=== PATIENT | female | born 1980 | race Caucasian/White ===

== ENCOUNTER 2016-11-18 16:38 | Emergency (ER) | payer MEDICAID ==
[~2016-11-18] VITALS: Ht 160 cm; Wt 94.5 kg
[~2016-11-18 16:38] MED LIST: CALC-516 PO; FERR240T9 PO; PREN-39 PO
[2016-11-18 16:41] VITALS: Ht 160 cm; Wt 94.5 kg
[2016-11-18] MEDS ORDERED: SOD CHLORIDE 0.9% 1,000 ML IV STA (17:09)
[2016-11-18] MEDS ORDERED: ONDANSETRON 4 MG INJ IV STA (17:09)
[2016-11-18] MEDS ORDERED: morphine 4 MG/ML VIAL IV STA (17:09)
--- NOTE | 2016-11-18 17:35 | ERD ---
ER Documentation Chief Complaint Date/Time DATE: 11/18/16 TIME: 17:32 Chief Complaint LT UPPER ABD PAIN WITH NAUSEA X 3 DAYS HPI This is a 36-year-old female with a history of cholelithiasis presenting to the emergency department complaining of epigastric and bilateral upper quadrant abdominal pain for the past 3 days. Patient admits to having nausea. She states it is worse with food. Patient states that she will see her physician a month ago but she does not number her doctor's name in which they told her that she needs surgery. Patient denies any diarrhea. She denies fevers. Patient states that her last menstrual period was October 18. Patient states that she has not taken any medications for this ROS All systems reviewed and are negative except as per history of present illness. Medications Home Meds Active Scripts Ondansetron (Ondansetron Odt) 4 Mg Tab.rapdis, 4 MG PO Q6H Y for NAUSEA AND/OR VOMITING, #14 TAB Prov:CRISTIANE WADDELL PA-C 11/18/16 Omeprazole* (Omeprazole*) 20 Mg Capsule.dr, 20 MG PO DAILY, #20 Prov:CRISTIANE WADDELL PA-C 11/18/16 Ibuprofen* (Ibuprofen*) 400 Mg Tablet, 600 MG PO Q6H Y for PAIN, #30 TAB Prov:CRISTIANE WADDELL PA-C 11/18/16 Reported Medications Calcium Carbonate/Vitamin D3 (OYSTER SHELL CALCIUM TABLET) 1 Each Tablet, 1 EACH PO DAILY 04/18/15 Ferrous Gluconate (Iron) 1 Tab Tablet, 1 TAB PO DAILY 04/18/15 Vits W-Ca,Fe,Fa(<1MG) ( Vitamins) 1 Tab Tablet, 1 TAB PO DAILY 04/18/15 Allergies Allergies: Coded Allergies: No Known Allergy (Unverified , 11/18/16) PMhx/Soc Medical and Surgical Hx: pt denies Medical Hx History of Surgery: Yes (C SECTION X3) Anesthesia Reaction: No Hx Neurological Disorder: No Hx Respiratory Disorders: No Hx Cardiac Disorders: No Hx Psychiatric Problems: No Hx Miscellaneous Medical Probl: No Hx Alcohol Use: No Hx Substance Use: No Hx Tobacco Use: No Smoking Status: Never smoker Physical Exam Vitals Vital Signs Date Time Temp Pulse Resp B/P Pulse Ox O2 Delivery O2 Flow Rate FiO2 11/18/16 19:28 98.2 71 20 117/61 99 Room Air 11/18/16 16:41 98.7 71 16 106/54 98 Physical Exam GENERAL: well-developed/well-nourished, in no apparent distress, non-toxic appearing HENT: NC/AT, moist mucous membranes EYES: Conjunctiva normal NECK: Supple, no lymphadenopathy PULM: CTA bilaterally, no rales, rhonchi, or wheezing heard CV: Normal S1S2, RRR, good capillary refill GI: Soft, non-distended, tender to palpation epigastric, right and left upper quadrant; positive Beck sign Normal bowel sounds, no masses or organomegaly felt on exam No gross peritonitis, no bruits Negative Rovsing, negative McBurney's point, Negative CVAT BACK: No masses EXT: No clubbing, cyanosis, or edema NEURO: Alert and Orientated SKIN: Intact, normal turgor PSYCH: Normal mood and mentation Result Diagram: 11/18/16 1720 11/18/16 1720 Results 24 hrs Laboratory Tests Test 11/18/16 15:30 11/18/16 17:20 Urine Color LT. YELLOW Urine Clarity CLEAR Urine pH 5.5 Urine Specific [place] >=1.030 Urine Ketones NEGATIVE Urine Nitrite NEGATIVE Urine Bilirubin NEGATIVE Urine Urobilinogen 0.2 E.U./dL Urine Leukocyte Esterase NEGATIVE Urine Microscopic RBC 0-2/HPF Urine Microscopic WBC 0-2/HPF Urine Squamous Epithelial Cells MODERATE Urine Bacteria RARE Urine Mucus MODERATE Urine Hemoglobin 1+ Urine Glucose NEGATIVE% Urine Total Protein 1+ White Blood Count 9.810^3/ul Red Blood Count 3.9910^6/ul Hemoglobin 12.6g/dl Hematocrit 37.0% Mean Corpuscular Volume 92.7fl Mean Corpuscular Hemoglobin 31.6pg Mean Corpuscular Hemoglobin Concent 34.1g/dl Red Cell Distribution Width 12.2% Platelet Count 04213^3/UL Mean Platelet Volume 9.4fl Neutrophils % 60.7% Lymphocytes % 31.3% Monocytes % 5.0% Eosinophils % 2.3% Basophils % 0.3% Nucleated Red Blood Cells % 0.0/100WBC Neutrophils # 6.010^3/ul Lymphocytes # 3.110^3/ul Monocytes # 0.510^3/ul Eosinophils # 0.210^3/ul Basophils # 0.010^3/ul Nucleated Red Blood Cells # 0.010^3/ul Sodium Level 141mmol/L Potassium Level 3.8mmol/L Chloride Level 103mmol/L Carbon Dioxide Level 27mmol/L Anion Gap 15 Blood Urea Nitrogen 14mg/dl Creatinine 0.49mg/dl Glucose Level 103mg/dl Calcium Level 9.2mg/dl Total Bilirubin 0.3mg/dl Direct Bilirubin 0.00mg/dl Indirect Bilirubin 0.3mg/dl Aspartate Amino Transf (AST/SGOT) 21IU/L Alanine Aminotransferase (ALT/SGPT) 29IU/L Alkaline Phosphatase 85IU/L Total Protein 7.9g/dl Albumin 4.5g/dl Globulin 3.40g/dl Albumin/Globulin Ratio 1.32 Lipase 38U/L Current Medications Medications (Trade) Dose Ordered Sig/Ha Route PRN Reason Start Time Stop Time Status Last Admin Dose Admin Sodium Chloride (NS) 1,000 ml @ 1,000 mls/hr Q1H STAT IV 11/18/16 17:09 11/18/16 18:08 DC 11/18/16 17:09 Morphine Sulfate (morphine) 4 mg ONCE STAT IV 11/18/16 17:09 11/18/16 17:11 DC 11/18/16 18:34 Ondansetron HCl (Zofran Inj) 4 mg ONCE STAT IV 11/18/16 17:09 11/18/16 17:11 DC 11/18/16 18:33 Procedures/MDM This is a 36-year-old female with a history of cholelithiasis presenting to the emergency department complaining of nausea and epigastric and bilateral upper quadrant abdominal pain for the past 3 days. Differentials include but not limited to pancreatitis, cholecystitis, cholangitis, appendicitis, hepatitis, diverticulitis, or other acute conditions. IV access established. Patient was given 1 L of fluids with morphine and Zofran with some improvement Lab work was drawn. CBC did not show any evidence of leukocytosis or anemia. CMP did not show any evidence of renal, liver, or electrolyte abnormalities. Lipase was normal. UA did not show any evidence of hemoglobin or urinary tract infection. Gallbladder ultrasound was done and radiologist stated: Mild hepatomegaly with fatty infiltration of the liver. Single calcified stone within the gallbladder. No evidence of gallbladder wall thickening or pericholecystic fluid. I discussed the patient that she suitable to follow-up with her primary care physician for fatty liver and cholelithiasis. Patient has no vital signs, normal labs that she appears well. She stable for outpatient care. I discussed to return to the ER for any worsening signs or symptoms. Patient understands and agrees with this plan. Departure Diagnosis: Primary Impression: Abdominal pain Condition: Stable CRISTIANE WADDELL PA-C Nov 18, 2016 17:35
[2016-11-18 17:42] LABS: ADD SCAN DIFF NO
[2016-11-18 17:45] LABS: ADD UMIC YES; URINE BILIRUBIN (Dip) NEGATIVE (NEGATIVE); URINE BLOOD (Dip) 1+ (NEGATIVE); URINE COLOR LT. YELLOW (YELLOW); URINE GLUCOSE (Dip) NEGATIVE (NEGATIVE); URINE KETONES (Dip) NEGATIVE (NEGATIVE); URINE LEUKOCYTE ESTERASE (Dip) NEGATIVE (NEGATIVE); URINE NITRITE (Dip) NEGATIVE (NEGATIVE); URINE TOTAL PROTEIN (Dip) 1+ (NEGATIVE); URINE UROBILINOGEN (Dip) 0.2 E.U./dL (0.1-1.0)
[2016-11-18 17:51] LABS: BASOPHILS % 0.3 % (0.0-2.0); EOSINOPHILS # 0.2 10^3/ul (0.0-0.5); EOSINOPHILS % 2.3 % (0.0-7.0); HEMOGLOBIN 12.6 g/dl (12.0-16.0); LYMPHOCYTES # 3.1 10^3/ul (0.8-2.9); LYMPHOCYTES % 31.3 % (15.0-51.0); MEAN CORPUSCULAR HEMOGLOBIN 31.6 pg (29.0-33.0); MEAN CORPUSCULAR HGB CONC 34.1 g/dl (32.0-37.0); MEAN CORPUSCULAR VOLUME 92.7 fl (82.0-101.0); MEAN PLATELET VOLUME 9.4 fl (7.4-10.4); MONOCYTE # 0.5 10^3/ul (0.3-0.9); NEUTROPHILS % 60.7 % (39.0-77.0); PLATELET COUNT 280 10^3/UL (140-415); RED BLOOD COUNT 3.99 10^6/ul (4.20-5.40); RED CELL DISTRIBUTION WIDTH 12.2 % (11.5-14.5); WHITE BLOOD COUNT 9.8 10^3/ul (4.8-10.8)
[2016-11-18 17:54] LABS: ALBUMIN 4.5 g/dl (3.3-4.9)
[2016-11-18 17:55] LABS: POTASSIUM 3.8 mmol/L (3.5-5.1)
[2016-11-18 17:57] LABS: ALBUMIN/GLOBULIN RATIO 1.32; BILIRUBIN,INDIRECT 0.3 mg/dl (0-1.1); BILIRUBIN,TOTAL 0.3 mg/dl (0.2-1.3); CALCIUM 9.2 mg/dl (8.4-10.2); CREATININE 0.49 mg/dl (0.44-1.00); TOTAL PROTEIN 7.9 g/dl (6.1-8.1)
[2016-11-18 17:59] LABS: MUCUS,URINE MODERATE; SQUAMOUS EPITHELIAL CELL,UR MODERATE
[2016-11-18 18:00] LABS: BACTERIA,URINE RARE; URINE RBCS 0-2 /HPF (0)
--- NOTE | 2016-11-18 18:18 | RADRPT ---
PROCEDURE: US Abdomen. CLINICAL INDICATION: abdominal pain TECHNIQUE: Multiple real-time images were acquired of the patient's right upper quadrant abdomen a nd retroperitoneum utilizing a high resolution transducer. COMPARISON: 01/29/15 FINDINGS: The liver demonstrates mildly increased echogenicity. The liver is increased in size and no focal s olid lesions are seen. The liver measures 19.2 cm in length. The portal vein is patent with normal d irection of flow. No intrahepatic biliary dilatation is seen. There is a single calcified 9 mm stone in the gallbladder. There is no pericholecystic fluid or gall bladder wall thickening. The common bile duct measures 2 mm in maximal dimension. The visualized portions of the pancreas are unremarkable. The tail of the pancreas is not seen. No free fluid is identified. The right kidney is normal in size, and demonstrate normal echogenicity and cortical thickness. The right kidney measures 9.8 cm in long dimension. There is no evidence of hydronephrosis. There are no kidney stones. RPTAT: AA IMPRESSION: Mild hepatomegaly with fatty infiltration of the liver. Single calcified stone within the gallbladder. No evidence of gallbladder wall thickening or perich olecystic fluid. .Osmin Pappas MD, MD Date Time Electronically viewed and signed by .Osmin Pappas MD, on 11/18/2016 18:17 .S/
[2016-11-18] MEDS ORDERED: OMEP20CA16 PO (18:22)
[2016-11-18] MEDS ORDERED: IBUP400T22 PO (18:22)
[2016-11-18] MEDS ORDERED: ONDA4TAB14 PO (18:25)
[2016-11-18 19:28] VITALS: BP 117/61; PULSE 71; RESP 20; TEMP 98.2
== END 2016-11-18 19:28 | disposition home or self-care (01) ==
LOC: FTE 16:38
DX: R10.13 Epigastric pain (principal); R10.11 Right upper quadrant pain; R10.12 Left upper quadrant pain; R11.0 Nausea
CPT/HCPCS: 76705; 80053; 81001; 81003; 83690; 85025; J2270; J2405; J7030; 36415; 96374; 96375

== ENCOUNTER 2017-01-13 13:13 | Emergency (ER) | payer MEDICAID ==
[~2017-01-13] VITALS: Wt 80.0 kg
[~2017-01-13 13:13] MED LIST changes: +IBUP400T22 PO; +OMEP20CA16 PO; +ONDA4TAB14 PO
[2017-01-13] MEDS ORDERED: HYDROCODONE/APAP (5/325) TAB PO ONE (14:30)
[2017-01-13] MEDS ORDERED: IBUPROFEN 600 MG TAB PO ONE (14:30)
[2017-01-13 15:19] LABS: ADD UMIC YES; URINE BILIRUBIN (Dip) 1+ (NEGATIVE); URINE BLOOD (Dip) 3+ (NEGATIVE); URINE COLOR YELLOW (YELLOW); URINE GLUCOSE (Dip) NEGATIVE (NEGATIVE); URINE KETONES (Dip) NEGATIVE (NEGATIVE); URINE LEUKOCYTE ESTERASE (Dip) NEGATIVE (NEGATIVE); URINE NITRITE (Dip) NEGATIVE (NEGATIVE); URINE TOTAL PROTEIN (Dip) 2+ (NEGATIVE); URINE UROBILINOGEN (Dip) 0.2 E.U./dL (0.1-1.0)
--- NOTE | 2017-01-13 15:24 | RADRPT ---
PROCEDURE: US Pelvis. CLINICAL INDICATION: pelvic pain TECHNIQUE: Multiple sonographic images of the pelvis were obtained utilizing a transabdominal and endovaginal technique. The images were reviewed on a PACS workstation. COMPARISON: None. FINDINGS: The uterus is normal in size with a normal appearance of the myometrium. The uterus measures 10.6 x 5.1 x 4.6 cm. The endometrial stripe is homogeneous in appearance and has the thickness of 15 mm. There is heterogeneous echogenic material within the cervical canal. The ovaries are normal in size and echogenicity. Normal Doppler flow is identified in both ovaries. The right ovary measures 2.4 x 1.4 x 2.2 cm. The left ovary measures 2.9 x 1.9 x 2.0 cm. No free fluid is present within the pelvis. RPTAT: AA IMPRESSION: Heterogeneous echogenic material in the cervical canal, suspicious for blood. Otherwise unremarkable. .Osmin Pappas MD, MD Date Time Electronically viewed and signed by .Osmin Pappas MD, on 01/13/2017 15:23 .S/
[2017-01-13 15:55] LABS: BACTERIA,URINE MANY; ICTOTEST NEGATIVE (NEGATIVE); SQUAMOUS EPITHELIAL CELL,UR FEW; URINE RBCS >200 /HPF (0)
[2017-01-13] MEDS ORDERED: IBUP-1542 PO (16:07)
[2017-01-13] MEDS ORDERED: HYDR-906 PO (16:07)
--- NOTE | 2017-01-13 16:16 | ERD ---
ER Documentation Chief Complaint Date/Time DATE: 01/13/17 TIME: 16:10 Chief Complaint LOWER ABD PAIN WITH MILD VAG BLEEDING. NO N/V. NO DIARRHEA. HPI This 36-year-old female presents with lower abdominal pain. She is on her menstrual period. Denies any fevers, nausea vomiting, urinary complaints, vaginal discharge. The pain is diffusely in the lower abdomen and nonspecific to the right or left. ROS All systems reviewed and are negative except as per history of present illness. Medications Home Meds Active Scripts Ibuprofen* (Motrin*) 600 Mg Tab, 600 MG PO Q6, #15 TAB Prov:KENRICK RUIZ MD 01/13/17 Hydrocodone/Acetaminophen ([place] 5-325 Tablet) 1 Each Tablet, 1 TAB PO Q6H Y for PAIN, #10 TAB Prov:KENRICK RUIZ MD 01/13/17 Ondansetron (Ondansetron Odt) 4 Mg Tab.rapdis, 4 MG PO Q6H Y for NAUSEA AND/OR VOMITING, #14 TAB Prov:CRISTIANE WADDELL PA-C 11/18/16 Omeprazole* (Omeprazole*) 20 Mg Capsule.dr, 20 MG PO DAILY, #20 Prov:CRISTIANE WADDELL PA-C 11/18/16 Ibuprofen* (Ibuprofen*) 400 Mg Tablet, 600 MG PO Q6H Y for PAIN, #30 TAB Prov:CRISTIANE WADDELL PA-C 11/18/16 Reported Medications Calcium Carbonate/Vitamin D3 (OYSTER SHELL CALCIUM TABLET) 1 Each Tablet, 1 EACH PO DAILY 04/18/15 Ferrous Gluconate (Iron) 1 Tab Tablet, 1 TAB PO DAILY 04/18/15 Vits W-Ca,Fe,Fa(<1MG) ( Vitamins) 1 Tab Tablet, 1 TAB PO DAILY 04/18/15 Allergies Allergies: Coded Allergies: No Known Allergy (Unverified , 11/18/16) PMhx/Soc History of Surgery: No Anesthesia Reaction: No Hx Neurological Disorder: No Hx Respiratory Disorders: No Hx Cardiac Disorders: No Hx Psychiatric Problems: No Hx Miscellaneous Medical Probl: No Hx Alcohol Use: No Hx Substance Use: No Hx Tobacco Use: No Physical Exam Vitals Vital Signs Date Time Temp Pulse Resp B/P Pulse Ox O2 Delivery O2 Flow Rate FiO2 01/13/17 13:15 98.1 80 21 134/59 98 Physical Exam Const: [] Alert, [id number] per Head: Atraumatic Eyes: Normal Conjunctiva ENT: Normal External Ears, Nose and Mouth. Neck: Full range of motion..~ No meningismus. Resp: Clear to auscultation bilaterally Cardio: Regular rate and rhythm, no murmurs Abd: Soft, minimal suprapubic tenderness without localization to McBurney's point no Beck sign., non distended. Normal bowel sounds. Vaginal exam with a sense of a stable attendant shows mild generalized tenderness and mild CMT. There is no adnexal tenderness or masses which are exquisite. Skin: No petechiae or rashes Back: No midline or flank tenderness Ext: No cyanosis, or edema Neur: Awake and alert Psych: Normal Mood and Affect Results 24 hrs Laboratory Tests Test 01/13/17 14:50 Urine Color YELLOW Urine Clarity TURBID Urine pH 5.5 Urine Specific [place] >=1.030 Urine Ketones NEGATIVE Urine Nitrite NEGATIVE Urine Bilirubin 1+ Urine Ictotest NEGATIVE Urine Urobilinogen 0.2 E.U./dL Urine Leukocyte Esterase NEGATIVE Urine Microscopic RBC >200/HPF Urine Microscopic WBC 0-2/HPF Urine Squamous Epithelial Cells FEW Urine Amorphous Urates MANY Urine Bacteria MANY Urine Hemoglobin 3+ Urine Glucose NEGATIVE% Urine Total Protein 2+ Current Medications Medications (Trade) Dose Ordered Sig/Ha Route PRN Reason Start Time Stop Time Status Last Admin Dose Admin Acetaminophen/ Hydrocodone Bitart ([place] (5/325)) 1 tab ONCE ONCE PO 01/13/17 14:30 01/13/17 14:31 DC 01/13/17 14:54 Ibuprofen (Motrin) 600 mg ONCE ONCE PO 01/13/17 14:30 01/13/17 14:31 DC 01/13/17 14:54 Ceftriaxone Sodium (Rocephin) 500 mg ONCE ONCE IM 01/13/17 16:30 01/13/17 16:31 Lidocaine (Xylocaine 1% (Mdv) 20 ml) 20 ml ONCE ONCE SC 01/13/17 16:30 01/13/17 16:31 Azithromycin (Zithromax) 1,000 mg ONCE ONCE PO 01/13/17 16:30 01/13/17 16:31 Procedures/MDM Pelvic ultrasound shows blood presumably menstrual in the canal without adnexal masses or acute findings. Urine shows negative leukocytes negative bacteria. There are few epithelial cells or many bacteria. Urine was sent for gonorrhea chlamydia and culture. Given the findings of pelvic pain of uncertain etiology with cervical motion tenderness patient was given Rocephin 500 mg IM and Zithromax 1 g p.o. Patient is no signs or symptoms to suggest appendicitis, tubo-ovarian abscess, additional causes of acute pelvic pain. There is no evidence to suggest ovarian torsion. She will treated with ibuprofen at home instructions to follow-up with primary doctor return to the ER for fevers, vomiting, migration of pain or worsening pain or new worsening symptoms as directed after instructions. Departure Diagnosis: Primary Impression: Pelvic pain Patient Instructions: Pelvic Pain, Unknown Cause Additional Instructions: TENIA TRATAMIENTO PARA INFECCION. Examines normal hoy. Cheque otro vez con ruff doctor primario en el proximo conklin or regresa para mas o nueva [email or web address] , MAS DOLOR. KENRICK RUIZ MD Jan 13, 2017 16:16
[2017-01-13] MEDS ORDERED: LIDOCAINE 1% (MDV) 20 ML INJ SC ONE (16:30)
[2017-01-13] MEDS ORDERED: CEFTRIAXONE 500 MG INJ IM ONE (16:30)
[2017-01-13] MEDS ORDERED: AZITHROMYCIN 250 MG TAB PO ONE (16:30)
== END 2017-01-13 16:26 | disposition home or self-care (01) ==
LOC: FTE 13:13
DX: R10.2 Pelvic and perineal pain (principal)
CPT/HCPCS: 76830; 76856; 81001; 87086; 87591; 96372; J0696; Z7502; Z7610